=== PATIENT | female | born 1950 | race Caucasian/White ===

== ENCOUNTER 2021-05-17 15:28 | Inpatient (IN) ==
[2021-05-18] MEDS ORDERED: Fluticasone Propionate Nasal 50 MCG/SPRAY BOTTLE NS PRN (18:25)
[2021-05-18] MEDS ORDERED: Albuterol 2.5 MG/3 ML NEBULIZER IH PRN (18:25)
[2021-05-18] MEDS ORDERED: Acetaminophen 325 MG TABLET PO PRN (18:25)
[2021-05-18] MEDS ORDERED: hydrOXYzine pamoate 25 MG CAPSULE PO PRN (18:48)
[2021-05-18] MEDS: Budesonide/Formoterol 160/4.5 1 PUFF INH IH SCH (20:59)
[2021-05-18] MEDS: Apixaban 5 MG TABLET PO SCH (21:00)
[2021-05-18] MEDS: Gabapentin 100 MG CAPSULE PO SCH (21:00)
[2021-05-19 04:51] LABS: Basophils % 0.2 %; Eosinophils % 0.2 %; Hematocrit 36.2 % (35.3-44.9); Hemoglobin 11.1 g/dL (11.5-15.4); Immature Granulocytes % 1.3 % (0-4); Lymphocytes # 1.2 K/mcL (0.6-4.6); Lymphocytes % 10.1 %; Mean Corpuscular HGB Conc 30.7 g/dL (31.6-35.5); Mean Corpuscular Hemoglobin 27.7 pg (28.0-33.3); Mean Corpuscular Volume 90.3 fL (83.0-100.0); Mean Platelet Volume 10.8 fL (9.4-12.4); Monocytes # 0.8 K/mcL (0.0-1.3); Neutrophils # 9.5 K/mcL (1.6-8.9); Platelet Count 231 K/mcL (140-400); Red Blood Count 4.01 M/mcL (3.82-4.97); Red Cell Distribution Width 14.2 % (11.5-14.5); Segmented Neutrophils % 81.2 %; White Blood Count 11.7 K/mcL (4.3-11.1)
[2021-05-19 05:05] LABS: Alanine Aminotransferase 25 Units/L (7-52); Albumin 2.9 g/dL (3.5-5.7); Albumin/Globulin Ratio 1.2 (1.1-2.2); Alkaline Phosphatase 74 Units/L (34-104); Aspartate Amino Transferase 17 Units/L (13-39); BUN/Creatinine Ratio 35 (6-26); Bilirubin,Total 0.3 mg/dL (0.3-1.0); Blood Urea Nitrogen 25 mg/dL (8-23); Calcium 8.3 mg/dL (8.6-10.3); Carbon Dioxide 37 mEq/L (23-29); Chloride 98 mEq/L (98-107); Globulin 2.5 g/dL (2.4-3.5); Glucose 120 mg/dL (70-105); Magnesium 2.1 mg/dL (1.6-2.6); Osmolality,Calculated 290 (280-300); Potassium 4.5 mEq/L (3.5-5.1); Sodium 137 mEq/L (136-145); Total Protein 5.4 g/dL (6.4-8.9); eGFR For African Americans > 60 (> 60); eGFR For Non-African Americans > 60 (> 60)
[2021-05-19] MEDS: TURMERIC 400 MG PO SCH (07:28)
[2021-05-19] MEDS: predniSONE 20 MG TABLET PO SCH (08:18)
[2021-05-19] MEDS: Cholecalciferol (D-3) 1,000 UNIT (25MCG) TABLET PO SCH (08:18)
[2021-05-19] MEDS: Apixaban 5 MG TABLET PO SCH ×2 (08:18→19:26)
[2021-05-19] MEDS: Multivit/Ca/Min/Fe/FA 1 TAB TABLET PO SCH (08:18)
[2021-05-19] MEDS: Cyanocobalamin (B-12) 1,000 MCG TABLET PO SCH (08:18)
[2021-05-19] MEDS: Ascorbic Acid 500 MG TABLET PO SCH (08:18)
[2021-05-19] MEDS: Tiotropium 10 INH DOSE IH SCH (09:32)
[2021-05-19] MEDS: Budesonide/Formoterol 160/4.5 1 PUFF INH IH SCH ×2 (09:33→21:15)
[2021-05-19] MEDS ORDERED: Ipratropium/Albuterol Neb 3 ML IH PRN (13:54)
[2021-05-19] MEDS: Gabapentin 100 MG CAPSULE PO SCH (19:26)
[2021-05-20] MEDS: Tiotropium 10 INH DOSE IH SCH (09:35)
[2021-05-20] MEDS: Budesonide/Formoterol 160/4.5 1 PUFF INH IH SCH ×2 (09:36→21:43)
[2021-05-20] MEDS: Apixaban 5 MG TABLET PO SCH ×2 (09:40→19:57)
[2021-05-20] MEDS: predniSONE 20 MG TABLET PO SCH (09:40)
[2021-05-20] MEDS: Multivit/Ca/Min/Fe/FA 1 TAB TABLET PO SCH (09:40)
[2021-05-20] MEDS: TURMERIC 400 MG PO SCH (09:41)
[2021-05-20] MEDS: Cholecalciferol (D-3) 1,000 UNIT (25MCG) TABLET PO SCH (09:41)
[2021-05-20] MEDS: Cyanocobalamin (B-12) 1,000 MCG TABLET PO SCH (09:41)
[2021-05-20] MEDS: Ascorbic Acid 500 MG TABLET PO SCH (09:41)
[2021-05-20] MEDS: Azithromycin 250 MG TABLET PO SCH (09:45)
[2021-05-20] MEDS: Gabapentin 100 MG CAPSULE PO SCH (19:57)
[2021-05-21 04:56] LABS: Hematocrit 36.5 % (35.3-44.9); Hemoglobin 11.2 g/dL (11.5-15.4); Mean Corpuscular HGB Conc 30.7 g/dL (31.6-35.5); Mean Corpuscular Hemoglobin 27.8 pg (28.0-33.3); Mean Corpuscular Volume 90.6 fL (83.0-100.0); Mean Platelet Volume 10.7 fL (9.4-12.4); Platelet Count 231 K/mcL (140-400); Red Blood Count 4.03 M/mcL (3.82-4.97); Red Cell Distribution Width 14.5 % (11.5-14.5); White Blood Count 10.6 K/mcL (4.3-11.1)
[2021-05-21 05:10] LABS: BUN/Creatinine Ratio 28 (6-26); Blood Urea Nitrogen 24 mg/dL (8-23); Calcium 8.3 mg/dL (8.6-10.3); Carbon Dioxide 38 mEq/L (23-29); Chloride 97 mEq/L (98-107); Glucose 105 mg/dL (70-105); Magnesium 2.2 mg/dL (1.6-2.6); Osmolality,Calculated 290 (280-300); Potassium 4.3 mEq/L (3.5-5.1); Sodium 138 mEq/L (136-145); eGFR For African Americans > 60 (> 60); eGFR For Non-African Americans > 60 (> 60)
[2021-05-21] MEDS: Tiotropium 10 INH DOSE IH SCH (08:32)
[2021-05-21] MEDS: Budesonide/Formoterol 160/4.5 1 PUFF INH IH SCH ×2 (08:32→21:26)
[2021-05-21] MEDS ORDERED: Cholecalciferol (D-3) 1,000 UNIT (25MCG) TABLET PO SCH (09:00)
[2021-05-21] MEDS: Cyanocobalamin (B-12) 1,000 MCG TABLET PO SCH (09:08)
[2021-05-21] MEDS: predniSONE 20 MG TABLET PO SCH (09:09)
[2021-05-21] MEDS: Multivit/Ca/Min/Fe/FA 1 TAB TABLET PO SCH (09:09)
[2021-05-21] MEDS: Ascorbic Acid 500 MG TABLET PO SCH (09:09)
[2021-05-21] MEDS: Apixaban 5 MG TABLET PO SCH ×2 (09:09→19:13)
[2021-05-21] MEDS: TURMERIC 400 MG PO SCH (09:10)
[2021-05-21] MEDS: Cholecalciferol (D-3) 1,000 UNIT (25MCG) TABLET PO SCH ×2 (09:51→10:58)
[2021-05-21] MEDS: Gabapentin 100 MG CAPSULE PO SCH (19:14)
[2021-05-22] MEDS: Tiotropium 10 INH DOSE IH SCH (08:00)
[2021-05-22] MEDS: Budesonide/Formoterol 160/4.5 1 PUFF INH IH SCH ×2 (08:00→20:26)
[2021-05-22] MEDS: Multivit/Ca/Min/Fe/FA 1 TAB TABLET PO SCH (08:46)
[2021-05-22] MEDS: Apixaban 5 MG TABLET PO SCH ×2 (08:46→20:51)
[2021-05-22] MEDS: predniSONE 20 MG TABLET PO SCH (08:46)
[2021-05-22] MEDS: Ascorbic Acid 500 MG TABLET PO SCH (08:46)
[2021-05-22] MEDS: Cholecalciferol (D-3) 1,000 UNIT (25MCG) TABLET PO SCH (08:48)
[2021-05-22] MEDS: TURMERIC 400 MG PO SCH (08:48)
[2021-05-22] MEDS: Cyanocobalamin (B-12) 1,000 MCG TABLET PO SCH (08:48)
[2021-05-22] MEDS: Azithromycin 250 MG TABLET PO SCH (08:55)
[2021-05-22] MEDS: Gabapentin 100 MG CAPSULE PO SCH (20:52)
[2021-05-23] MEDS: Budesonide/Formoterol 160/4.5 1 PUFF INH IH SCH ×2 (08:06→22:05)
[2021-05-23] MEDS: Tiotropium 10 INH DOSE IH SCH (08:07)
[2021-05-23] MEDS: Apixaban 5 MG TABLET PO SCH ×2 (08:53→21:26)
[2021-05-23] MEDS: Multivit/Ca/Min/Fe/FA 1 TAB TABLET PO SCH (08:53)
[2021-05-23] MEDS: predniSONE 20 MG TABLET PO SCH (08:53)
[2021-05-23] MEDS: Cyanocobalamin (B-12) 1,000 MCG TABLET PO SCH (08:53)
[2021-05-23] MEDS: Cholecalciferol (D-3) 1,000 UNIT (25MCG) TABLET PO SCH (08:53)
[2021-05-23] MEDS: TURMERIC 400 MG PO SCH (08:55)
[2021-05-23] MEDS: Ascorbic Acid 500 MG TABLET PO SCH (08:55)
[2021-05-23] MEDS: Gabapentin 100 MG CAPSULE PO SCH (21:26)
[2021-05-24 07:33] VITALS: BP 104/64; PULSE 57; TEMP 97.4
[2021-05-24] MEDS: Budesonide/Formoterol 160/4.5 1 PUFF INH IH SCH (07:36)
[2021-05-24] MEDS: Tiotropium 10 INH DOSE IH SCH (07:36)
[2021-05-24 07:56] VITALS: RESP 14; O2SAT 95
[2021-05-24] MEDS: Cholecalciferol (D-3) 1,000 UNIT (25MCG) TABLET PO SCH (09:58)
[2021-05-24] MEDS: predniSONE 20 MG TABLET PO SCH (09:59)
[2021-05-24] MEDS: Apixaban 5 MG TABLET PO SCH (10:00)
[2021-05-24] MEDS: Cyanocobalamin (B-12) 1,000 MCG TABLET PO SCH (10:01)
[2021-05-24] MEDS: Multivit/Ca/Min/Fe/FA 1 TAB TABLET PO SCH (10:01)
[2021-05-24] MEDS: Ascorbic Acid 500 MG TABLET PO SCH (10:01)
[2021-05-24] MEDS: TURMERIC 400 MG PO SCH (10:02)
[2021-05-24] MEDS: Azithromycin 250 MG TABLET PO SCH (10:31)
== END 2021-05-24 17:30 | disposition hospice, home (50) ==
LOC: INPGRE 05-18 18:01
PROVIDERS: ADMIT Family Medicine; ATTEND Family Medicine